=== PATIENT | male | born 1995 | race Caucasian/White ===

== ENCOUNTER 2022-10-23 02:51 | Emergency (ER) | payer OTHER, SELFPAY ==
[2022-10-23 02:51] VITALS: BP 149/100; PULSE 117; RESP 20; O2SAT 97
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
--- NOTE | 2022-10-23 03:19 | PC.NURSE ---
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 PT DECLINES IMAGING AND ADDITIONAL TEST. PT EDUCATED ON RISKS AND BENEFITS OF TESTING. PT VERBALIZED UNDERSTANDING AND CONTINUES TO DECLINE TESTING. AMA PAPERWORK OBTAINED.
== END 2022-10-23 03:06 | disposition left against medical advice (07) ==
LOC: CHSED 03:31
PROVIDERS: Emergency Provider Emergency Medicine; PCP Family Medicine
DX: Z04.1 Encounter for examination and observation following transport accident (principal); V89.2XXA Person injured in unspecified motor-vehicle accident, traffic, initial encounter
CPT/HCPCS: 99281